=== PATIENT | female | born 1960 | race Caucasian/White ===

== ENCOUNTER 2022-03-07 10:20 | Inpatient (IN) ==
--- NOTE | 2022-03-07 10:35 | Emergency Department Note ---
HPI General Chief complaint: Rib Pain Stated complaint: Fall Time Seen by Provider: 03/07/22 10:35 Source: patient Mode of arrival: ambulatory Limitations: no limitations History of Present Illness HPI Narrative: Narrative: Patient is a 61-year-old female with no significant past medical history who presents to the emergency department due to pain after fall. Patient states that she fell on Friday and had significant pain initially, but this pain seem to have improved. She states that she has had worsening of pain since then, so decided to come to the emergency department. She endorses pain in both the fro nt of her chest and back of her chest bilaterally. She states that this started after she tripped, fell, and hit the anterior part of her chest and belly. She endorses worsening of this pain with deep breathing and with certain movements. She denies any other concerns at this time. Related Data Home Medications Medication Instructions Recorded Confirmed diphenhydramine 25 See Rx Instructions PO QHS PRN Rash 02/02/19 11/06/21 mg-acetaminophen 500 mg tablet (Tylenol PM Extra Strength) Previous Rx's Medication Instructions Recorded albuterol sulfate 90 mcg/actuation 2 inh inhalation QID PRN shortness 01/12/21 aerosol inhaler (ProAir HFA) of breath or wheezing #8.5 grams alendronate 70 mg tablet 70 mg PO QWEEK #28 tabs 03/27/21 amlodipine 10 mg tablet 10 mg PO QDAY #90 tabs 05/25/21 lisinopril 40 mg tablet See Rx Instructions .Route 05/31/21 .COMPLEX #30 tabs sertraline 50 mg tablet 50 mg PO QDAY #60 tabs 07/13/21 fluticasone fur. 200 mcg-umeclid 1 inh inhalation Q24H #60 ea 11/06/21 62.5 mcg-vilant 25 mcg inhalat.powder (Trelegy Ellipta) meloxicam 7.5 mg tablet 7.5 mg PO BIDWMEAL #60 tabs 01/01/22 atorvastatin 40 mg tablet See Rx Instructions .Route 01/30/22 .COMPLEX #30 tabs hydroxyzine HCl 25 mg tablet 25 mg PO TID PRN anxiety #30 tabs 03/04/22 Allergies Allergy/AdvReac Type Severity Reaction Status Date / Time Penicillins Allergy Severe Unknown Verified 11/06/21 09:41 Review of Systems ROS ROS Narrative: Narrative: Constitutional: Denies fever or weakness Eyes: Denies eye pain or vision change ENT ED: Denies throat pain, hearing loss or rhinorrhea Cardiovascular: Reports chest pain; Denies dyspnea on exertion, orthopnea or edema Respiratory: Reports shortness of breath; Denies cough Gastrointestinal: Denies abdominal pain, nausea, vomiting, diarrhea, constipation, hematochezia or melena Musculoskeletal: Denies back pain or myalgia Integumentary: Denies rash or lesions Neurological: Denies headache, weakness, numbness, confusion, abnormal gait or dizziness Endocrine: Denies fatigue or polyuria Hematological/Lymphatic: Denies easy bleeding or easy bruising PFSH Narrative Patient History Narrative: Narrative: Medical/Surgical/Family History All Active Problems (Updated 03/10/22 @ 02:29 by Stanley Martinez MD) Closed rib fracture (Acute) Stage 1 acute kidney injury (Acute) Atelectasis of left lung (Acute) Left rib fracture (Acute) Emphysema lung (Acute) Rib pain on left side (Acute) Alcoholic (Acute) PTSD (post-traumatic stress disorder) (Acute) Smoker (Acute) Carotid bruit (Acute) Anxiety (Acute) Accelerated essential hypertension (Acute) Thoracic back pain (Acute) Osteoarthritis (Chronic) Muscle cramps (Chronic) Depression (Chronic) Screening for colon cancer (Chronic) Hypertension (Chronic) Hyperlipidemia (Chronic) Heart murmur (Chronic) Asthma (Chronic) Arthritis (Chronic) Poor sleep (Chronic) Menopausal state (Chronic) Nondisp fx proximal phalanx lesser toe right foot w/delayed healing (Acute) Medical History Arthritis Asthma Depression Heart murmur Hyperlipidemia Hypertension Menopausal state Muscle cramps Osteoarthritis Poor sleep Screening for colon cancer Surgical History History of knee surgery (~1986) Family History Mother , age 63 Heart disease Family/Other Diabetes Siblings Social History Smoking Status: Current every day smoker Substance Use: does not use Exam Narrative Narrative: Narrative: General Limitations: no limitations General appearance: Present alert and in no apparent distress; Absent anxious, appears intoxicated or sleepy Head Head: Present atraumatic and normocephalic Eye Eye: Present EOMI; Absent scleral icterus or nystagmus ENT ENT: Present mucous membranes moist; Absent nasal congestion Neck Neck: Present full ROM; Absent tenderness Chest Chest: Present normal inspection, symmetric chest wall rise and tenderness Respiratory Respiratory: Present normal lung sounds bilaterally; Absent respiratory distress or accessory muscle use Cardiovascular Cardiovascular: Present regular rate, normal rhythm and normal heart sounds Adbominal Abdominal: Present soft and normal bowel sounds; Absent distention or tenderness Extremities Extremities: Present normal inspection and full ROM; Absent tenderness Back Back: Present normal inspection and full ROM; Absent tenderness Neurological Neurological: Present alert and oriented X3 Psychiatric Psychiatric: Present normal affect and normal mood Skin Skin: Present warm (WNL), dry and normal color Course Vital Signs Vital signs: Vital Signs Temperature 96.8 F L 03/07/22 10:23 Pulse Rate 115 H 03/07/22 10:23 Respiratory Rate 25 H 03/07/22 10:23 Blood Pressure 151/75 03/07/22 10:23 Pulse Oximetry (%) 97 03/07/22 10:23 Oxygen Delivery Method 03/07/22 10:23 Temperature 98.4 F 03/09/22 23:51 Pulse Rate 89 03/09/22 23:51 Respiratory Rate 16 03/09/22 23:51 Blood Pressure 129/83 03/09/22 23:51 Pulse Oximetry (%) 94 03/09/22 23:51 Oxygen Delivery Method 03/09/22 23:51 MDM MDM Narrative Medical decision making narrative: Narrative: Patient is a 61-year-old female with no significant past medical history who presents to the emergency department due to pain after fall. Given patient's rib tenderness and fall there is concern for rib fracture. Differential for patient's chest pain and shortness of breath also includes ACS and pneumonia. Patient CT scan demonstrates 3 consecutive rib fractures. For this reason I have called and spoken to Dr. Goode, but he recommended that since patient was a couple of days out from injury and without pneumothorax that I speak to Dr. Covington. I spoke to Dr. Covington who has agreed to see and evaluate patient for admission. Lab Data Result diagrams: 03/08/22 05:05 03/08/22 05:05 Labs: Lab Results 03/07/22 03/07/22 Range/Units 12:04 12:07 WBC 11.9 H (4.5-11.0) K/mcL RBC 4.72 (3.59-5.38) M/mcL Hgb 14.7 (11.2-15.7) g/dL Hct 43.8 (34.1-44.9) % POC Hct 48.0 (36-48) MCV 92.8 (80.0-100.0) fL MCH 31.1 (26.0-34.0) pg MCHC 33.6 (31.0-36.0) g/dL RDW 12.8 (11.5-14.5) % Plt Count 299 (140-440) K/mcL MPV 9.5 (8.8-12.5) fL Immature Gran % (Auto) 0.4 (0.0-0.5) % Neut % (Auto) 88.6 H (38.0-78.0) % Lymph % (Auto) 5.6 L (15.5-49.0) % [place] % (Auto) 4.7 (1.0-12.0) % Eos % (Auto) 0.2 (0.0-7.0) % Baso % (Auto) 0.5 (0.0-2.0) % Lymph # (Auto) 0.67 L (1.50-4.80) K/mcL [place] # (Auto) 0.56 (0.10-0.90) K/mcL Eos # (Auto) 0.02 (0.00-0.70) K/mcL Baso # (Auto) 0.06 (0.00-0.30) K/mcL Immature Gran # 0.05 (0.00-0.05) K/mcl Absolute Neutrophils 10.52 H (1.80-8.00) K/mcL POC Sodium 135 (133-145) POC Potassium 4.1 (3.3-5.1) POC Chloride 103 (96-108) POC Total CO2 22.0 (22-30) POC BUN 21 H (6-20) POC Creatinine 1.3 H (0.6-1.2) POC Glucose 122 H (70-105) POC WB Ioniz Calcium 1.17 (1.16-1.32) Discharge Plan Patient/Caregiver Discharge Instructions Pt seen by NUCLEAR ENGINEER/PA only: No Clinical Impression: Closed rib fracture Patient Disposition: Xfer As Inpt ([facility]) Discharge Date/Time: 03/07/22 19:45
[2022-03-07] MEDS ORDERED: 0.9 % SODIUM CHLORIDE 500 ML IV ONE (11:34)
[2022-03-07] MEDS ORDERED: KETOROLAC 30 MG/ML VIAL IV ONE (11:34)
[2022-03-07 12:13] LABS: POC Calcium, Ionized 1.17 (1.16-1.32); POC Creatinine 1.3 (0.6-1.2); POC Potassium 4.1 (3.3-5.1)
[2022-03-07 12:27] LABS: Basophils # (Auto) 0.06 K/mcL (0.00-0.30); Basophils % (Auto) 0.5 % (0.0-2.0); Eosinophils # (Auto) 0.02 K/mcL (0.00-0.70); Eosinophils % (Auto) 0.2 % (0.0-7.0); Hematocrit 43.8 % (34.1-44.9); Hemoglobin 14.7 g/dL (11.2-15.7); Lymphocytes # (Auto) 0.67 K/mcL (1.50-4.80); Lymphocytes % (Auto) 5.6 % (15.5-49.0); Mean Cell Volume 92.8 fL (80.0-100.0); Mean Corpuscular HGB Conc 33.6 g/dL (31.0-36.0); Mean Platelet Volume 9.5 fL (8.8-12.5); Monocytes # (Auto) 0.56 K/mcL (0.10-0.90); Monocytes % (Auto) 4.7 % (1.0-12.0); Neutrophils % (Auto) 88.6 % (38.0-78.0); Platelet Count 299 K/mcL (140-440); RBC 4.72 M/mcL (3.59-5.38); Red Cell Distribution Width 12.8 % (11.5-14.5); WBC 11.9 K/mcL (4.5-11.0)
--- NOTE | 2022-03-07 13:39 | Cat Scan Report ---
History: Fell with bilateral anterior chest wall injuries TECHNIQUE: The chest was imaged without contrast in axial plane at 2.5 mm intervals. Sagittal, coronal and axial MIPS images were obtained. The radiation exposure was limited using dose reduction technology. FINDINGS: There are acute, nondisplaced fractures anteriorly in the left third, fourth and fifth ribs. There is an old healed fracture with callus anterolaterally in the left sixth rib. The right-sided ribs are normal with no fracture. There is no pneumothorax or pleural effusion. No chest wall hematoma is present. Subtle centrilobular emphysema is present in both upper lobes. There are two benign pleural-based nodules posteriorly medially in the right upper apex. The larger measures 7 mm. There has been no growth since the prior CT done on 03/15/21. There are also chronic linear bands of scar tissue inferiorly medially in the lingula and medially in the right middle lobe. A new band of scar or discoid atelectasis has developed laterally in the inferior segment of lingula and the anterior basal segment left lower lobe. There is no consolidating infiltrate or suspicious lung mass. The heart is normal in size and contour. No enlarged lymph nodes are present. There is very little atherosclerotic disease in the chest. There is mild arthritis at multiple levels in the thoracic spine. There is no spinal fracture. The sternum and visualized portions of the clavicles and scapula are normal. IMPRESSION: Acute fractures anteriorly in the left third fourth and fifth ribs. New linear bands of scar or discoid atelectasis in the anterior basal segment of the left lower lobe and inferior segment of the lingula Stable pleural-based nodular scars posteriorly in the right upper thorax Dr. Martinez was called with the report Interpreted and Authenticated by: Miguel Angel Chan 03/07/22
[2022-03-07] MEDS ORDERED: HYDROmorphone 0.5 MG/0.5 ML SYRINGE IV ONE ×3 (13:51→19:27)
--- NOTE | 2022-03-07 16:31 | Internal Med History&Physical ---
HPI History of Present Illness Patient information: Note initiated : 03/07/22 at 4:29 pm Service Date, if different from initiated Date: [] Patient: Adeline Mathews 61 y/o F admitted on for Fall. Chief Complaint: [left ribs pain] Chief complaint: left ribs pain History of present illness: Ms. Mathews is a 61 year old F history of cigarette smoking, COPD, essential hypertensions, presenting with accidental fall with resultant left sided chest wall pain with associated shortness of breath. She had a mechanical fall last Friday when he tripped on the cord of the heater. She landed on her abdomen and her chest without any head injury. She did not lost her consciousness. Her pain gradually increased now graded at 10 out of 10 in severity, constant, sharp, radiating from her left upper abdominal quadrant to left lateral chest to left upper back. She has difficulty taking a deep breath and does associated shortness of breath. CT imaging showing acute fractures anteriorly in the left third fourth and fifth ribs with associated atelectasis in the anterior basal segment of the left lower lobe and inferior segment of the lingula. Labs also showing mild leukocytosis with WBC 11.9, as well as serum creatinine mildly raised to 1.3 with baseline 1.0. Admission request was called for pain management associated with rib fractures. Constitutional Constitutional: Absent chills, excessive sweating, fatigue, fever(s) or weakness EENT Eyes: Absent blurry vision, change in vision, loss of vision or other visual disturbances Ears: Absent decreased hearing or tinnitus Nose, mouth and throat: Absent abnormal hearing, dry mouth, headache(s), nasal congestion or sore throat Cardiovascular Cardiovascular: Absent chest pain, chest pain at rest, edema, irregular heart rhythm or palpatations Respiratory Respiratory: Present dyspnea; Absent cough or wheezing Gastrointestinal Gastrointestinal: Present as per HPI and abdominal pain; Absent constipation, diarrhea, nausea or vomiting Musculoskeletal Musculoskeletal: Present as per HPI and back pain; Absent deformity, limited range of motion, muscle cramps, muscle weakness or numbness Integumentary Integumentary: Absent lesions, rash or wounds Neurological Neurological: Absent focal weakness, headache(s) or numbness Psychiatric Psychiatric: Absent anxiety, depression or hallucinations PFSH PFSH All Active Problems (Updated 03/07/22 @ 16:37 by Anuj Covington MD) Stage 1 acute kidney injury (Acute) Atelectasis of left lung (Acute) Left rib fracture (Acute) Emphysema lung (Acute) Rib pain on left side (Acute) Alcoholic (Acute) PTSD (post-traumatic stress disorder) (Acute) Smoker (Acute) Carotid bruit (Acute) Anxiety (Acute) Accelerated essential hypertension (Acute) Thoracic back pain (Acute) Osteoarthritis (Chronic) Muscle cramps (Chronic) Depression (Chronic) Screening for colon cancer (Chronic) Hypertension (Chronic) Hyperlipidemia (Chronic) Heart murmur (Chronic) Asthma (Chronic) Arthritis (Chronic) Poor sleep (Chronic) Menopausal state (Chronic) Nondisp fx proximal phalanx lesser toe right foot w/delayed healing (Acute) Medical History Arthritis Asthma Depression Heart murmur Hyperlipidemia Hypertension Menopausal state Muscle cramps Osteoarthritis Poor sleep Screening for colon cancer Surgical History History of knee surgery (~1986) Family History Mother , age 63 Heart disease Family/Other Diabetes Siblings Social History (Updated 03/27/21 @ 17:15 by Felicia Rasmussen CMA) marital status: legally smoking status: Current every day smoker tobacco type: cigarettes per day: 1 p ack-years: 30 smoking status start date: 04/14/90 counseling given: patient declined substance use type: does not use MEDS/ALLERGIES Home Medications and Allergies Home Medications Medication Instructions Recorded Confirmed Type diphenhydramine 25 See Rx Instructions PO QHS PRN 02/02/19 11/06/21 History mg-acetaminophen 500 mg tablet (Tylenol PM Extra Strength) albuterol sulfate 90 mcg/actuation 2 inh inhalation QID PRN shortness 01/12/21 11/06/21 Rx aerosol inhaler (ProAir HFA) of breath or wheezing #8.5 grams alendronate 70 mg tablet 70 mg PO QWEEK #28 tabs 03/27/21 11/06/21 Rx amlodipine 10 mg tablet 10 mg PO QDAY #90 tabs 05/25/21 11/06/21 Rx lisinopril 40 mg tablet See Rx Instructions .Route 05/31/21 11/06/21 Rx .COMPLEX #30 tabs sertraline 50 mg tablet 50 mg PO QDAY #60 tabs 07/13/21 11/06/21 Rx fluticasone fur. 200 mcg-umeclid 1 inh inhalation Q24H #60 ea 11/06/21 11/06/21 Rx 62.5 mcg-vilant 25 mcg inhalat.powder (Trelegy Ellipta) meloxicam 7.5 mg tablet 7.5 mg PO BIDWMEAL #60 tabs 01/01/22 Rx atorvastatin 40 mg tablet See Rx Instructions .Route 01/30/22 Rx .COMPLEX #30 tabs hydroxyzine HCl 25 mg tablet 25 mg PO TID PRN anxiety #30 tabs 03/04/22 Rx Allergies Allergy/AdvReac Type Severity Reaction Status Date / Time Penicillins Allergy Severe Unknown Verified 11/06/21 09:41 EXAM Constitutional Vitals: Temp Pulse Resp BP Pulse Ox O2 Del Method 36.0 C L 97 H 25 H 138/80 97 03/07/22 10:23 03/07/22 15:40 03/07/22 10:23 03/07/22 12:31 03/07/22 15:40 03/07/22 10:23 General appearance: cooperative and no acute distress Head Head exam: Present atraumatic and normocephalic Eye Eye exam: Present EOMI and PERRL ENT ENT exam: Present mucous membranes moist, normal exam and normal external ear exam Neck Neck exam: Present normal inspection; Absent lymphadenopathy, tenderness or thyromegaly Respiratory Respiratory exam: Present decreased breath sounds and rhonchi; Absent accessory muscle use, respiratory distress or wheezes Cardiovascular Cardiovascular exam: Present normal rate and rhythm; Absent JVD GI/Abdominal GI/Abdominal exam: Present normal bowel sounds and soft; Absent organomegaly or tenderness Extremities Exam Extremities exam: Present full ROM, normal capillary refill and normal inspection; Absent tenderness Back Exam Back exam: Present CVA tenderness (L) and tenderness Neurological Exam Neurological exam: Present alert, CN II-XII intact and oriented X3; Absent motor sensory deficit Psychiatric Psychiatric exam: Present normal affect and normal mood; Absent anxious or depressed Skin Skin exam: Present dry and intact DATA Data Completed and Pending Labs: Labs from last 24 hours 03/07/22 03/07/22 12:07 12:04 WBC 11.9 H RBC 4.72 Hgb 14.7 Hct 43.8 POC Hct 48.0 MCV 92.8 MCH 31.1 MCHC 33.6 RDW 12.8 Plt Count 299 MPV 9.5 Immature Gran % (Auto) 0.4 Neut % (Auto) 88.6 H Lymph % (Auto) 5.6 L [place] % (Auto) 4.7 Eos % (Auto) 0.2 Baso % (Auto) 0.5 Lymph # (Auto) 0.67 L [place] # (Auto) 0.56 Eos # (Auto) 0.02 Baso # (Auto) 0.06 Immature Gran # 0.05 Absolute Neutrophils 10.52 H POC Sodium 135 POC Potassium 4.1 POC Chloride 103 POC Total CO2 22.0 POC BUN 21 H POC Creatinine 1.3 H POC Glucose 122 H POC WB Ioniz Calcium 1.17 A/P Assessment and plan (1) Left rib fracture: Status: Acute (2) Atelectasis of left lung: Status: Acute (3) Smoker: Status: Acute (4) Emphysema lung: Status: Acute (5) Stage 1 acute kidney injury: Status: Acute Narrative A/P Narrative: Assessment and Plans: 1. Acute left 3rd, 4th, and 5th rib fracture with associated left left lower lobe/lingula atelectasis: Inpatient med surg Tylenol PRN mild pain Oxycodone PRN moderate pain Dilaudid IV PRN severe pain Toradol PRN MSK pain Ativan PO PRN anxiety Incentive spirometry Physcial therapy 2. COPD/emphysema: DuoNEB NEB PRN wheezing Incentive spirometry 3. Cigarette smoker: Nicotine replacement therapy 4. Stage 1 acute kidney injury: Avoid nephrotoxic agents NS@100cc/hr CMP in the morning to trend kidney functions GI ppx: not currently indicated DVT ppx: Lovenox Code status: Full Prognosis: guarded Disposition: inpatient med surg; PT Time Spent With Patient Time: Total time spent is greater than 50% in coordination of care (as documented) at patient's floor/unit and/or counseling patient: Total time spent with greater than 50% in coordination of care (as documented) at patient's floor/unit and/or counseling patient:: 50 - 70 minutes
[2022-03-07] MEDS ORDERED: traZODone HCL 50 MG TABLET PO PRN (19:59)
[2022-03-07] MEDS: SENNOSIDES 1 TABLET PO SCH (20:51)
[2022-03-07] MEDS: DOCUSATE SODIUM 100 MG CAPSULE PO SCH (20:51)
[2022-03-07] MEDS: 0.9 % SODIUM CHLORIDE 1,000 ML IV SCH (20:51)
[2022-03-07] MEDS: NICOTINE 21 MG PATCH TOPICAL SCH (20:51)
[2022-03-07] MEDS: 0.9 % SODIUM CHLORIDE 10 ML SYRINGE IV SCH (21:14)
[2022-03-07] MEDS: HYDROmorphone 0.5 MG/0.5 ML SYRINGE IV PRN (21:31)
[2022-03-07] MEDS: ONDANSETRON 4 MG/2 ML VIAL IV PRN (21:37)
[2022-03-08] MEDS: oxyCODONE HCL 5 MG TABLET PO PRN ×3 (01:02→20:06)
[2022-03-08] MEDS: IPRATROPIUM/ALBUTEROL 3 ML AMPUL.NEB NEB PRN ×3 (03:43→12:34)
[2022-03-08] MEDS: 0.9 % SODIUM CHLORIDE 10 ML SYRINGE IV SCH ×3 (05:05→20:14)
[2022-03-08] MEDS: 0.9 % SODIUM CHLORIDE 1,000 ML IV SCH ×4 (05:05→20:07)
[2022-03-08] MEDS: KETOROLAC 15 MG/ML VIAL IV PRN ×2 (05:41→12:31)
[2022-03-08 06:49] LABS: Basophils # (Auto) 0.04 K/mcL (0.00-0.30); Basophils % (Auto) 0.5 % (0.0-2.0); Eosinophils # (Auto) 0.04 K/mcL (0.00-0.70); Eosinophils % (Auto) 0.5 % (0.0-7.0); Hematocrit 40.7 % (34.1-44.9); Hemoglobin 13.5 g/dL (11.2-15.7); Lymphocytes # (Auto) 0.87 K/mcL (1.50-4.80); Lymphocytes % (Auto) 11.7 % (15.5-49.0); Mean Cell Volume 95.8 fL (80.0-100.0); Mean Corpuscular HGB Conc 33.2 g/dL (31.0-36.0); Mean Platelet Volume 9.7 fL (8.8-12.5); Monocytes # (Auto) 0.49 K/mcL (0.10-0.90); Monocytes % (Auto) 6.6 % (1.0-12.0); Neutrophils % (Auto) 80.3 % (38.0-78.0); Platelet Count 259 K/mcL (140-440); RBC 4.25 M/mcL (3.59-5.38); Red Cell Distribution Width 13.2 % (11.5-14.5); WBC 7.5 K/mcL (4.5-11.0)
[2022-03-08 06:50] LABS: ALT/SGPT 11 U/L (<40); AST/SGOT 16 U/L (<32); Albumin/Globulin Ratio 1.6 (1.0-2.3); Alkaline Phosphatase 109 U/L (39-117); Bilirubin,Total 0.8 mg/dL (0.1-1.0); Blood Urea Nitrogen 19 mg/dL (8-23); Carbon Dioxide 25 mmol/L (22-30); Chloride 101 mmol/L (96-108); Globulin 2.5 gm/dL (2.2-3.7); Glomerular Filtration Rate 44; Glucose 91 mg/dL (70-105)
[2022-03-08] MEDS ORDERED: ENOXAPARIN 30 MG/0.3 ML SYRINGE SQ SCH (09:00)
[2022-03-08] MEDS ORDERED: ALBUTEROL SULFATE 60 PUFF INHALER INH PRN (09:17)
[2022-03-08] MEDS: ENOXAPARIN 40 MG/0.4 ML SYRINGE SQ SCH (09:48)
[2022-03-08] MEDS: DOCUSATE SODIUM 100 MG CAPSULE PO SCH ×2 (09:48→20:06)
[2022-03-08] MEDS: LISINOPRIL 20 MG TABLET PO SCH (09:48)
[2022-03-08] MEDS: NICOTINE 21 MG PATCH TOPICAL SCH (11:06)
[2022-03-08] MEDS: LORazepam 0.5 MG TABLET PO PRN (11:11)
--- NOTE | 2022-03-08 13:00 | Internal Med Progress Note ---
SUBJECTIVE Subjective Patient information: Note initiated : 03/08/22 at 12:57 pm Service Date, if different from initiated Date: [] Patient: Adeline Mathews 61 y/o F admitted on 03/07/22 for Fall-Left Rib Fractures. Chief Complaint: [] Interval history: Ms. Mathews is a 61 year old F history of cigarette smoking, COPD, essential hypertensions, presenting with accidental fall with resultant left sided chest wall pain with associated shortness of breath. She had a mechanical fall last Friday when he tripped on the cord of the heater. She landed on her abdomen and her chest without any head injury. She did not lost her consciousness. Her pa in gradually increased now graded at 10 out of 10 in severity, constant, sharp, radiating from her left upper abdominal quadrant to left lateral chest to left upper back. She has difficulty taking a deep breath and does associated shortness of breath. CT imaging showing acute fractures anteriorly in the left third fourth and fifth ribs with associated atelectasis in the anterior basal segment of the left lower lobe and inferior segment of the lingula. Labs also showing mild leukocytosis with WBC 11.9, as well as serum creatinine mildly raised to 1.3 with baseline 1.0. Admission request was called for pain management associated with rib fractures. 03/08: Patient is currently complaining of 2 out of 10, mild, sharp left sided chest wall pain. She is coming of improving degree of shortness of breath and can take a deep breath compared to yesterday. Laboratory rise, WBC down trended from 11.9-7.5. Serum creatinine level status same at 1.3. Continue to provide narcotics as needed for pain control. Continue to encourage patients to use incentive spirometry while awake. Continue IV fluid replacement while trending kidney functions on a daily basis. Continue physical therapy evaluation and treatment. Constitutional Vitals: Vital Signs Temp Pulse Resp BP Pulse Ox O2 Del Method 36.7 C 111 H 16 136/67 93 03/08/22 12:00 03/08/22 12:37 03/08/22 12:37 03/08/22 12:00 03/08/22 12:37 03/08/22 12:37 Period Temp Pulse Resp BP Sys/Roberts Pulse Ox O2 Del Method O2 Flow Rate Last 24 Hr 36.7 C-36.9 C 66-111 16-20 117-158/67-103 91-99 Room Air-Room Air Intake and Output 03/08/22 03/08/22 03/08/22 03:59 11:59 19:59 Intake Total 400 1480 Output Total 400 50 Balance 0 1430 Weight 69.57 kg Intake & Output: Intake & Output 03/08/22 03/08/22 03/08/22 03:59 11:59 19:59 Intake Total 400 1480 Output Total 400 50 Balance 0 1430 Weight 69.57 kg Intake: IV 1000 Sodium Chloride 0.9% 1,000 ml @ 1000 100 mls/hr IV .Q10H [facility] Rx#: [id number] Oral 400 480 Output: Void Amount 400 50 Other: Meal Breakfast Percent of Meal Consumed 50% Feeding Ability Independent Urine Appearance Clear Clear Urine Color Yellow Yellow Head Head exam: Present atraumatic and normal inspection Eye Eye exam: Present normal appearance ENT ENT exam: Present mucous membranes moist, normal exam and normal external ear exam Neck Neck exam: Present normal inspection Respiratory Respiratory exam: Present decreased breath sounds and wheezes Additional comments: Left lateral chest wall tenderness to palpation Cardiovascular Cardiovascular exam: Present normal rate and rhythm GI/Abdominal GI/Abdominal exam: Present normal bowel sounds Back Exam Back exam: Present normal inspection Neurological Exam Neurological exam: Present alert and oriented X3 Skin Skin exam: Present intact and warm OBJ DATA Labs CBC & Chem 7: 03/08/22 05:05 03/08/22 05:05 Labs: Abnormal Lab Results 03/08/22 03/08/22 03/07/22 05:05 05:05 12:07 WBC Neut % (Auto) 80.3 H Lymph % (Auto) 11.7 L Lymph # (Auto) 0.87 L Absolute Neutrophils POC BUN 21 H Creatinine 1.3 H POC Creatinine 1.3 H POC Glucose 122 H 03/07/22 12:04 WBC 11.9 H Neut % (Auto) 88.6 H Lymph % (Auto) 5.6 L Lymph # (Auto) 0.67 L Absolute Neutrophils 10.52 H POC BUN Creatinine POC Creatinine POC Glucose Meds: Medications Acetaminophen (Acetaminophen 325 Mg Tablet) 650 mg PO Q6HP PRN; Protocol PRN Reason: Per Pain Protocol/Fever > 101 Albuterol Sulfate (Albuterol Sulfate 200 Puff Inhaler) 2 puff INH QIDP PRN PRN Reason: shortness of breath or wheezing Albuterol/Ipratropium (Ipratropium/Albuterol 3 Ml Ampul.Neb) 3 ml NEB Q4HRT PRN PRN Reason: Wheezing Last Admin: 03/08/22 12:34 Dose: 3 ml Alendronate Sodium (Alendronate Sodium 70 Mg Tablet) 70 mg PO Fr@0730 [facility] Amlodipine Besylate (Amlodipine 10 Mg Tablet) 10 mg PO QDAY [facility] Atorvastatin Calcium (Atorvastatin 40 Mg Tablet) 40 mg PO HS [facility] Docusate Sodium (Docusate Sodium 100 Mg Capsule) 100 mg PO BID [facility] Last Admin: 03/08/22 09:48 Dose: 100 mg Enoxaparin Sodium (Enoxaparin 40 Mg/0.4 Ml Syringe) 40 mg SQ DAILY [facility] Last Admin: 03/08/22 09:48 Dose: 40 mg Hydromorphone HCl (Hydromorphone 0.5 Mg/0.5 Ml Syringe) 0.5 mg IV Q2HP PRN; Protocol PRN Reason: Per Pain Protocol Last Admin: 03/07/22 21:31 Dose: 0.5 mg Hydroxyzine HCl (Hydroxyzine 25 Mg Tablet) 25 mg PO TIDP PRN PRN Reason: anxiety Sodium Chloride (Sodium Chloride 0.9%) 1,000 mls @ 100 mls/hr IV .Q10H [facility] Last Admin: 03/08/22 09:47 Dose: 100 mls/hr Ketorolac Tromethamine (Ketorolac 15 Mg/Ml Vial) 15 mg IV Q6HP PRN; Protocol PRN Reason: Per Pain Protocol Stop: 03/09/22 20:01 Last Admin: 03/08/22 12:31 Dose: 15 mg Lisinopril (Lisinopril 20 Mg Tablet) 40 mg PO DAILY [facility] Last Admin: 03/08/22 09:48 Dose: 40 mg Lorazepam (Lorazepam 0.5 Mg Tablet) 0.5 mg PO Q4HP PRN PRN Reason: ANXIETY/SEDATION Last Admin: 03/08/22 11:11 Dose: 0.5 mg Nicotine (Nicotine 21 Mg Patch) 21 mg TOPICAL DAILY@1000 [facility] Last Admin: 03/08/22 11:06 Dose: 21 mg Ondansetron HCl (Ondansetron 4 Mg/2 Ml Vial) 4 mg IV Q6HP PRN PRN Reason: Nausea And Vomiting Last Admin: 03/07/22 21:37 Dose: 4 mg Oxycodone HCl (Oxycodone Hcl 5 Mg Tablet) 10 mg PO Q4HP PRN; Protocol PRN Reason: Per Pain Protocol Last Admin: 03/08/22 09:53 Dose: 10 mg Senna (Sennosides 1 Tablet) 2 tab PO HS [facility] Last Admin: 03/07/22 20:51 Dose: 2 tab Sertraline HCl (Sertraline 50 Mg Tablet) 50 mg PO QDAY [facility] Sodium Chloride (0.9 % Sodium Chloride 10 Ml Syringe) 10 ml IV Q8 [facility] Last Admin: 03/08/22 05:05 Dose: Not Given Trazodone HCl (Trazodone Hcl 50 Mg Tablet) 25 mg PO HSP PRN PRN Reason: Insomnia A/P Assessment and plan (1) Left rib fracture: Status: Acute (2) Atelectasis of left lung: Status: Acute (3) Smoker: Status: Acute (4) Emphysema lung: Status: Acute (5) Stage 1 acute kidney injury: Status: Acute Narrative A/P Narrative: Assessment and Plans: 1. Acute left 3rd, 4th, and 5th rib fracture with associated left left lower lobe/lingula atelectasis: Inpatient med surg Tylenol PRN mild pain Oxycodone PRN moderate pain Dilaudid IV PRN severe pain Toradol PRN MSK pain Ativan PO PRN anxiety Incentive spirometry Physical therapy evaluation and treatment 2. COPD/emphysema: DuoNEB NEB PRN wheezing Incentive spirometry 3. Cigarette smoker: Nicotine replacement therapy 4. Stage 1 acute kidney injury: Avoid nephrotoxic agents NS@100cc/hr CMP in the morning to trend kidney functions GI ppx: not currently indicated DVT ppx: Lovenox Code status: Full Prognosis: Stable Disposition: inpatient med surg; PT Time Spent With Patient Time: Total time spent is greater than 50% in coordination of care (as documented) at patient's floor/unit and/or counseling patient: Total time spent with greater than 50% in coordination of care (as documented) at patient's floor/unit and/or counseling patient:: 25 - 35 minutes QUALITY Stroke Symptom Onset Unknown: No VTE Deep Vein Thrombosis/Pulmonary Embolism Present on Admission: No
[2022-03-08] MEDS: ONDANSETRON 4 MG/2 ML VIAL IV PRN (15:13)
[2022-03-08] MEDS: HYDROmorphone 0.5 MG/0.5 ML SYRINGE IV PRN (15:13)
[2022-03-08] MEDS: SENNOSIDES 1 TABLET PO SCH (20:05)
[2022-03-08] MEDS: ATORVASTATIN 40 MG TABLET PO SCH (20:06)
[2022-03-08] MEDS: hydrOXYzine 25 MG TABLET PO PRN (22:53)
[2022-03-09] MEDS: 0.9 % SODIUM CHLORIDE 1,000 ML IV SCH ×3 (01:49→15:45)
[2022-03-09] MEDS: HYDROmorphone 0.5 MG/0.5 ML SYRINGE IV PRN ×4 (03:18→18:48)
[2022-03-09] MEDS: ACETAMINOPHEN 325 MG TABLET PO PRN (03:19)
[2022-03-09] MEDS: ONDANSETRON 4 MG/2 ML VIAL IV PRN ×2 (03:19→11:37)
[2022-03-09] MEDS: 0.9 % SODIUM CHLORIDE 10 ML SYRINGE IV SCH ×3 (04:11→21:23)
[2022-03-09] MEDS: amLODIPine 10 MG TABLET PO SCH (08:10)
[2022-03-09] MEDS: LISINOPRIL 20 MG TABLET PO SCH (08:10)
[2022-03-09] MEDS: SERTRALINE 50 MG TABLET PO SCH (08:10)
[2022-03-09] MEDS: ENOXAPARIN 40 MG/0.4 ML SYRINGE SQ SCH (08:10)
[2022-03-09] MEDS: DOCUSATE SODIUM 100 MG CAPSULE PO SCH ×2 (08:56→21:07)
[2022-03-09] MEDS: oxyCODONE HCL 5 MG TABLET PO PRN ×2 (10:02→21:06)
[2022-03-09] MEDS: NICOTINE 21 MG PATCH TOPICAL SCH (10:03)
[2022-03-09] MEDS: KETOROLAC 15 MG/ML VIAL IV PRN ×2 (11:37→19:01)
--- NOTE | 2022-03-09 15:14 | Internal Med Progress Note ---
SUBJECTIVE Subjective Patient information: Note initiated : 03/09/22 at 3:11 pm Service Date, if different from initiated Date: [] Patient: Adeline Mathews a 61 y/o F admitted on 03/07/22 for Fall-Left Rib Fractures. Chief Complaint: [] Interval history: Ms. Mathews is a 61 year old F history of cigarette smoking, COPD, essential hypertensions, presenting with accidental fall with resultant left sided chest wall pain with associated shortness of breath. She had a mechanical fall last Friday when he tripped on the cord of the heater. She landed on her abdomen and her chest without any head injury. She did not lost her consciousness. Her pain gradually increased now graded at 10 out of 10 in severity, constant, sharp, radiating from her left upper abdominal quadrant to left lateral chest to left upper back. She has difficulty taking a deep breath and does associated shortness of breath. CT imaging showing acute fractures anteriorly in the left third fourth and fifth ribs with associated atelectasis in the anterior basal segment of the left lower lobe and inferior segment of the lingula. Labs also showing mild leukocytosis with WBC 11.9, as well as serum creatinine mildly raised to 1.3 with baseline 1.0. Admission request was called for pain management associated with rib fractures. 03/08: Patient is currently complaining of 2 out of 10, mild, sharp left sided chest wall pain. She is coming of improving degree of shortness of breath and can take a deep breath compared to yesterday. Laboratory rise, WBC down trended f rom 11.9-7.5. Serum creatinine level status same at 1.3. Continue to provide narcotics as needed for pain control. Continue to encourage patients to use incentive spirometry while awake. Continue IV fluid replacement while trending kidney functions on a daily basis. Continue physical therapy evaluation and treatment. 03/09: Still c/o severe, 8/10 left sided chest wall pain. c/o mild shortness of breath due to chest wall pain. Poor appetite. Unable to participate with physical therapy due to pain. Continue to provide narcotics as needed for pain control. Continue to encourage patients to use incentive spirometry while awake. Continue IV fluid replacement while trending kidney functions on a daily basis. Continue physical therapy evaluation and treatment. Constitutional Vitals: Vital Signs Temp Pulse Resp BP Pulse Ox O2 Del Method 36.4 C 87 18 164/99 95 03/09/22 12:00 03/09/22 12:00 03/09/22 12:00 03/09/22 12:00 03/09/22 12:00 03/09/22 12:00 Period Temp Pulse Resp BP Sys/Roberts Pulse Ox O2 Del Method O2 Flow Rate Last 24 Hr 36.4 C-37.3 C 84-105 14-20 142-164/70-99 91-95 Room Air-Room Air Intake and Output 03/09/22 03/09/22 03/09/22 03:59 11:59 19:59 Intake Total 480 968 Output Total 600 Balance -120 968 Weight 71.894 kg Patient Weight 03/10/22 03:59 Weight 71.894 kg Intake & Output: Intake & Output 03/09/22 03/09/22 03/09/22 03:59 11:59 19:59 Intake Total 480 968 Output Total 600 Balance -120 968 Weight 71.894 kg Intake: IV 968 Sodium Chloride 0.9% 1,000 ml @ 968 100 mls/hr IV .Q10H [facility] Rx#: [id number] Oral 480 Output: Void Amount 600 Other: Urine Appearance Clear Clear Urine Color Yellow Yellow Stool Size Large Large Stool Color Brown Brown Yellow Stool Consistency Liquid Loose # Voids 1 1 # Bowel Movements 1 1 Head Head exam: Present atraumatic and normal inspection Eye Eye exam: Present normal appearance ENT ENT exam: Present mucous membranes moist, normal exam and normal external ear exam Neck Neck exam: Present normal inspection Respiratory Respiratory exam: Present chest wall tenderness and wheezes Cardiovascular Cardiovascular exam: Present normal rate and rhythm GI/Abdominal GI/Abdominal exam: Present normal bowel sounds Back Exam Back exam: Present normal inspection Neurological Exam Neurological exam: Present alert and oriented X3 Skin Skin exam: Present intact and warm OBJ DATA Labs CBC & Chem 7: 03/08/22 05:05 03/08/22 05:05 Labs: Abnormal Lab Results 03/08/22 03/08/22 03/07/22 05:05 05:05 12:07 WBC Neut % (Auto) 80.3 H Lymph % (Auto) 11.7 L Lymph # (Auto) 0.87 L Absolute Neutrophils POC BUN 21 H Creatinine 1.3 H POC Creatinine 1.3 H POC Glucose 122 H 03/07/22 12:04 WBC 11.9 H Neut % (Auto) 88.6 H Lymph % (Auto) 5.6 L Lymph # (Auto) 0.67 L Absolute Neutrophils 10.52 H POC BUN Creatinine POC Creatinine POC Glucose Meds: Medications Acetaminophen (Acetaminophen 325 Mg Tablet) 650 mg PO Q6HP PRN; Protocol PRN Reason: Per Pain Protocol/Fever > 101 Last Admin: 03/09/22 03:19 Dose: 650 mg Albuterol Sulfate (Albuterol Sulfate 200 Puff Inhaler) 2 puff INH QIDP PRN PRN Reason: shortness of breath or wheezing Albuterol/Ipratropium (Ipratropium/Albuterol 3 Ml Ampul.Neb) 3 ml NEB Q4HRT PRN PRN Reason: Wheezing Last Admin: 03/08/22 12:34 Dose: 3 ml Alendronate Sodium (Alendronate Sodium 70 Mg Tablet) 70 mg PO Fr@0730 [facility] Amlodipine Besylate (Amlodipine 10 Mg Tablet) 10 mg PO QDAY [facility] Last Admin: 03/09/22 08:10 Dose: 10 mg Atorvastatin Calcium (Atorvastatin 40 Mg Tablet) 40 mg PO HS [facility] Last Admin: 03/08/22 20:06 Dose: 40 mg Docusate Sodium (Docusate Sodium 100 Mg Capsule) 100 mg PO BID [facility] Last Admin: 03/09/22 08:56 Dose: Not Given Enoxaparin Sodium (Enoxaparin 40 Mg/0.4 Ml Syringe) 40 mg SQ DAILY [facility] Last Admin: 03/09/22 08:10 Dose: 40 mg Hydromorphone HCl (Hydromorphone 0.5 Mg/0.5 Ml Syringe) 0.5 mg IV Q2HP PRN; Protocol PRN Reason: Per Pain Protocol Last Admin: 03/09/22 08:11 Dose: 0.5 mg Hydroxyzine HCl (Hydroxyzine 25 Mg Tablet) 25 mg PO TIDP PRN PRN Reason: anxiety Last Admin: 03/08/22 22:53 Dose: 25 mg Sodium Chloride (Sodium Chloride 0.9%) 1,000 mls @ 100 mls/hr IV .Q10H [facility] Last Admin: 03/09/22 05:48 Dose: 100 mls/hr Ketorolac Tromethamine (Ketorolac 15 Mg/Ml Vial) 15 mg IV Q6HP PRN; Protocol PRN Reason: Per Pain Protocol Stop: 03/09/22 20:01 Last Admin: 03/09/22 11:37 Dose: 15 mg Lisinopril (Lisinopril 20 Mg Tablet) 40 mg PO DAILY [facility] Last Admin: 03/09/22 08:10 Dose: 40 mg Lorazepam (Lorazepam 0.5 Mg Tablet) 0.5 mg PO Q4HP PRN PRN Reason: ANXIETY/SEDATION Last Admin: 03/08/22 11:11 Dose: 0.5 mg Nicotine (Nicotine 21 Mg Patch) 21 mg TOPICAL DAILY@1000 [facility] Last Admin: 03/09/22 10:03 Dose: 21 mg Ondansetron HCl (Ondansetron 4 Mg/2 Ml Vial) 4 mg IV Q6HP PRN PRN Reason: Nausea And Vomiting Last Admin: 03/09/22 11:37 Dose: 4 mg Oxycodone HCl (Oxycodone Hcl 5 Mg Tablet) 10 mg PO Q4HP PRN; Protocol PRN Reason: Per Pain Protocol Last Admin: 03/09/22 10:02 Dose: 10 mg Senna (Sennosides 1 Tablet) 2 tab PO HS [facility] Last Admin: 03/08/22 20:05 Dose: 2 tab Sertraline HCl (Sertraline 50 Mg Tablet) 50 mg PO QDAY [facility] Last Admin: 03/09/22 08:10 Dose: 50 mg Sodium Chloride (0.9 % Sodium Chloride 10 Ml Syringe) 10 ml IV Q8 [facility] Last Admin: 03/09/22 14:26 Dose: Not Given Trazodone HCl (Trazodone Hcl 50 Mg Tablet) 25 mg PO HSP PRN PRN Reason: Insomnia A/P Assessment and plan (1) Left rib fracture: Status: Acute (2) Atelectasis of left lung: Status: Acute (3) Smoker: Status: Acute (4) Emphysema lung: Status: Acute (5) Stage 1 acute kidney injury: Status: Acute Narrative A/P Narrative: Assessment and Plans: 1. Acute left 3rd, 4th, and 5th rib fracture with associated left left lower lobe/lingula atelectasis: Inpatient med surg Tylenol PRN mild pain Oxycodone PRN moderate pain Dilaudid IV PRN severe pain Toradol PRN MSK pain Ativan PO PRN anxiety Incentive spirometry Physical therapy evaluation and treatment 2. COPD/emphysema: DuoNEB NEB PRN wheezing Incentive spirometry 3. Cigarette smoker: Nicotine replacement therapy 4. Stage 1 acute kidney injury: Avoid nephrotoxic agents NS@100cc/hr CMP in the morning to trend kidney functions GI ppx: not currently indicated DVT ppx: Lovenox Code status: Full Prognosis: Stable Disposition: inpatient med surg; PT, tentatively looking at Friday discharge Time Spent With Patient Time: Total time spent is greater than 50% in coordination of care (as documented) at patient's floor/unit and/or counseling patient: Total time spent with greater than 50% in coordination of care (as documented) at patient's floor/unit and/or counseling patient:: 25 - 35 minutes QUALITY Stroke Symptom Onset Unknown: No VTE Deep Vein Thrombosis/Pulmonary Embolism Present on Admission: No
[2022-03-09] MEDS: hydrOXYzine 25 MG TABLET PO PRN (17:49)
[2022-03-09] MEDS: IPRATROPIUM/ALBUTEROL 3 ML AMPUL.NEB NEB PRN (17:52)
[2022-03-09] MEDS: ATORVASTATIN 40 MG TABLET PO SCH (21:07)
[2022-03-09] MEDS: SENNOSIDES 1 TABLET PO SCH (21:08)
[2022-03-09] MEDS: LORazepam 0.5 MG TABLET PO PRN (22:32)
[2022-03-10] MEDS: HYDROmorphone 0.5 MG/0.5 ML SYRINGE IV PRN ×6 (00:36→19:17)
[2022-03-10] MEDS: 0.9 % SODIUM CHLORIDE 1,000 ML IV SCH ×2 (01:42→12:29)
[2022-03-10] MEDS: hydrOXYzine 25 MG TABLET PO PRN (03:37)
[2022-03-10 07:10] LABS: ALT/SGPT 12 U/L (<40); AST/SGOT 18 U/L (<32); Albumin 3.1 gm/dL (3.2-5.2); Albumin/Globulin Ratio 1.5 (1.0-2.3); Alkaline Phosphatase 75 U/L (39-117); Bilirubin,Total 0.3 mg/dL (0.1-1.0); Blood Urea Nitrogen 17 mg/dL (8-23); Calcium 8.1 mg/dL (8.6-10.4); Carbon Dioxide 22 mmol/L (22-30); Chloride 103 mmol/L (96-108); Globulin 2.1 gm/dL (2.2-3.7); Glomerular Filtration Rate 54; Glucose 94 mg/dL (70-105)
[2022-03-10] MEDS: 0.9 % SODIUM CHLORIDE 10 ML SYRINGE IV SCH ×3 (08:08→20:45)
[2022-03-10] MEDS: ENOXAPARIN 40 MG/0.4 ML SYRINGE SQ SCH (08:54)
[2022-03-10] MEDS: LISINOPRIL 20 MG TABLET PO SCH (08:54)
[2022-03-10] MEDS: NICOTINE 21 MG PATCH TOPICAL SCH (08:54)
[2022-03-10] MEDS: oxyCODONE HCL 5 MG TABLET PO PRN ×3 (08:54→20:40)
[2022-03-10] MEDS: amLODIPine 10 MG TABLET PO SCH (08:54)
[2022-03-10] MEDS: LORazepam 0.5 MG TABLET PO PRN ×2 (08:54→16:56)
[2022-03-10] MEDS: SERTRALINE 50 MG TABLET PO SCH (08:55)
[2022-03-10] MEDS: DOCUSATE SODIUM 100 MG CAPSULE PO SCH ×2 (09:05→20:42)
[2022-03-10] MEDS: IPRATROPIUM/ALBUTEROL 3 ML AMPUL.NEB NEB PRN ×2 (11:22→15:31)
[2022-03-10] MEDS: ACETAMINOPHEN 325 MG TABLET PO PRN (12:16)
--- NOTE | 2022-03-10 12:18 | Internal Med Progress Note ---
SUBJECTIVE Subjective Patient information: Note initiated : 03/10/22 at 12:15 pm Service Date, if different from initiated Date: [] Patient: Adeline Mathews a 61 y/o F admitted on 03/07/22 for Fall-Left Rib Fractures. Chief Complaint: [] Interval history: Ms. Mathews is a 61 year old F history of cigarette smoking, COPD, essential hypertensions, presenting with accidental fall with resultant left sided chest wall pain with associated shortness of breath. She had a mechanical fall last Friday when he tripped on the cord of the heater. She landed on her abdomen and her chest without any head injury. She did not lost her consciousness. Her pa in gradually increased now graded at 10 out of 10 in severity, constant, sharp, radiating from her left upper abdominal quadrant to left lateral chest to left upper back. She has difficulty taking a deep breath and does associated shortness of breath. CT imaging showing acute fractures anteriorly in the left third fourth and fifth ribs with associated atelectasis in the anterior basal segment of the left lower lobe and inferior segment of the lingula. Labs also showing mild leukocytosis with WBC 11.9, as well as serum creatinine mildly raised to 1.3 with baseline 1.0. Admission request was called for pain management associated with rib fractures. 03/08: Patient is currently complaining of 2 out of 10, mild, sharp left sided chest wall pain. She is coming of improving degree of shortness of breath and can take a deep breath compared to yesterday. Laboratory rise, WBC down trended from 11.9-7.5. Serum creatinine level status same at 1.3. Continue to provide narcotics as needed for pain control. Continue to encourage patients to use incentive spirometry while awake. Continue IV fluid replacement while trending kidney functions on a daily basis. Continue physical therapy evaluation and treatment. 03/09: Still c/o severe, 8/10 left sided chest wall pain. c/o mild shortness of breath due to chest wall pain. Poor appetite. Unable to participate with physical therapy due to pain. Continue to provide narcotics as needed for pain control. Continue to encourage patients to use incentive spirometry while awake. Continue IV fluid replacement while trending kidney functions on a daily basis. Continue physical therapy evaluation and treatment. 03/10: Patient is on 3L/min oxygen at the moment. Serum Cr level 1.3-->1.3-->1.1. Still c/o severe, 8/10 left sided chest wall pain. c/o mild shortness of breath due to chest wall pain. Continue to provide narcotics as needed for pain control. Continue to encourage patients to use incentive spirometry while awake. Saline lock. Continue physical therapy evaluation and treatment. Tentative discharge date: Friday03/11/22. Constitutional Vitals: Vital Signs Temp Pulse Resp BP Pulse Ox O2 Del Method O2 Flow Rate 37.0 C 86 36 H 149/90 91 3 03/10/22 11:25 03/10/22 11:53 03/10/22 11:53 03/10/22 11:25 03/10/22 11:53 03/10/22 11:53 03/10/22 11:53 Period Temp Pulse Resp BP Sys/Roberts Pulse Ox O2 Del Method O2 Flow Rate Last 24 Hr 36.8 C-37.4 C 86-108 14-36 127-162/83-91 85-96 Nasal Cannula- Room Air 3-3 Intake and Output 03/10/22 03/10/22 03/10/22 03:59 11:59 19:59 Intake Total 1595 Output Total 625 150 Balance 970 -150 Intake & Output: Intake & Output 03/10/22 03/10/22 03/10/22 03:59 11:59 19:59 Intake Total 1595 Output Total 625 150 Balance 970 -150 Intake: IV 995 Sodium Chloride 0.9% 1,000 ml @ 995 100 mls/hr IV .Q10H [facility] Rx#: [id number] Oral 600 Output: Void Amount 625 150 Other: Meal Dinner Percent of Meal Consumed 50% Urine Appearance Clear Clear Urine Color Yellow Yellow General appearance: average body habitus and cooperative Head Head exam: Present atraumatic and normal inspection Eye Eye exam: Present normal appearance ENT ENT exam: Present mucous membranes moist, normal exam and normal external ear exam Additional comments: Nasal cannula in place Neck Neck exam: Present normal inspection Respiratory Respiratory exam: Present chest wall tenderness, decreased breath sounds and wheezes Cardiovascular Cardiovascular exam: Present normal rate and rhythm GI/Abdominal GI/Abdominal exam: Present normal bowel sounds Back Exam Back exam: Present normal inspection Neurological Exam Neurological exam: Present alert and oriented X3 Skin Skin exam: Present intact and warm OBJ DATA Labs CBC & Chem 7: 03/08/22 05:05 03/10/22 05:55 Labs: Abnormal Lab Results 03/10/22 03/08/22 03/08/22 05:55 05:05 05:05 WBC Neut % (Auto) 80.3 H Lymph % (Auto) 11.7 L Lymph # (Auto) 0.87 L Absolute Neutrophils Creatinine 1.3 H Calcium 8.1 L Total Protein 5.2 L Albumin 3.1 L Globulin 2.1 L 03/07/22 12:04 WBC 11.9 H Neut % (Auto) 88.6 H Lymph % (Auto) 5.6 L Lymph # (Auto) 0.67 L Absolute Neutrophils 10.52 H Creatinine Calcium Total Protein Albumin Globulin Meds: Medications Acetaminophen (Acetaminophen 325 Mg Tablet) 650 mg PO Q6HP PRN; Protocol PRN Reason: Per Pain Protocol/Fever > 101 Last Admin: 03/09/22 03:19 Dose: 650 mg Albuterol Sulfate (Albuterol Sulfate 200 Puff Inhaler) 2 puff INH QIDP PRN PRN Reason: shortness of breath or wheezing Albuterol/Ipratropium (Ipratropium/Albuterol 3 Ml Ampul.Neb) 3 ml NEB Q4HRT PRN PRN Reason: Wheezing Last Admin: 03/10/22 11:22 Dose: 3 ml Alendronate Sodium (Alendronate Sodium 70 Mg Tablet) 70 mg PO Fr@0730 [facility] Amlodipine Besylate (Amlodipine 10 Mg Tablet) 10 mg PO QDAY [facility] Last Admin: 03/10/22 08:54 Dose: 10 mg Atorvastatin Calcium (Atorvastatin 40 Mg Tablet) 40 mg PO [facility] Last Admin: 03/09/22 21:07 Dose: 40 mg Docusate Sodium (Docusate Sodium 100 Mg Capsule) 100 mg PO BID [facility] Last Admin: 03/10/22 09:05 Dose: Not Given Enoxaparin Sodium (Enoxaparin 40 Mg/0.4 Ml Syringe) 40 mg SQ DAILY [facility] Last Admin: 03/10/22 08:54 Dose: 40 mg Hydromorphone HCl (Hydromorphone 0.5 Mg/0.5 Ml Syringe) 0.5 mg IV Q2HP PRN; Protocol PRN Reason: Per Pain Protocol Last Admin: 03/10/22 11:16 Dose: 0.5 mg Hydroxyzine HCl (Hydroxyzine 25 Mg Tablet) 25 mg PO TIDP PRN PRN Reason: anxiety Last Admin: 03/10/22 03:37 Dose: 25 mg Sodium Chloride (Sodium Chloride 0.9%) 1,000 mls @ 100 mls/hr IV .Q10H [facility] Last Admin: 03/10/22 01:42 Dose: 100 mls/hr Lisinopril (Lisinopril 20 Mg Tablet) 40 mg PO DAILY [facility] Last Admin: 03/10/22 08:54 Dose: 40 mg Lorazepam (Lorazepam 0.5 Mg Tablet) 0.5 mg PO Q4HP PRN PRN Reason: ANXIETY/SEDATION Last Admin: 03/10/22 08:54 Dose: 0.5 mg Meloxicam (Meloxicam 7.5 Mg Tablet) 7.5 mg PO BIDWMEAL [facility]; Protocol Nicotine (Nicotine 21 Mg Patch) 21 mg TOPICAL DAILY@1000 [facility] Last Admin: 03/10/22 08:54 Dose: 21 mg Ondansetron HCl (Ondansetron 4 Mg/2 Ml Vial) 4 mg IV Q6HP PRN PRN Reason: Nausea And Vomiting Last Admin: 03/09/22 11:37 Dose: 4 mg Oxycodone HCl (Oxycodone Hcl 5 Mg Tablet) 10 mg PO Q4HP PRN; Protocol PRN Reason: Per Pain Protocol Last Admin: 03/10/22 08:54 Dose: 10 mg Senna (Sennosides 1 Tablet) 2 tab PO HS [facility] Last Admin: 03/09/22 21:08 Dose: Not Given Sertraline HCl (Sertraline 50 Mg Tablet) 50 mg PO QDAY [facility] Last Admin: 03/10/22 08:55 Dose: 50 mg Sodium Chloride (0.9 % Sodium Chloride 10 Ml Syringe) 10 ml IV Q8 [facility] Last Admin: 03/10/22 08:08 Dose: Not Given Trazodone HCl (Trazodone Hcl 50 Mg Tablet) 25 mg PO HSP PRN PRN Reason: Insomnia Last Admin: 03/09/22 21:07 Dose: 25 mg A/P Assessment and plan (1) Left rib fracture: Status: Acute (2) Atelectasis of left lung: Status: Acute (3) Smoker: Status: Acute (4) Emphysema lung: Status: Acute (5) Stage 1 acute kidney injury: Status: Acute Narrative A/P Narrative: Assessment and Plans: 1. Acute left 3rd, 4th, and 5th rib fracture with associated left left lower lobe/lingula atelectasis: Inpatient med surg Tylenol PRN mild pain Oxycodone PRN moderate pain Dilaudid IV PRN severe pain Toradol PRN MSK pain Ativan PO PRN anxiety Incentive spirometry Supplemental oxygen therapy Physical therapy evaluation and treatment 2. COPD/emphysema: DuoNEB NEB PRN wheezing Incentive spirometry 3. Cigarette smoker: Nicotine replacement therapy 4. Stage 1 acute kidney injury: Kidney functions back to baseline Avoid nephrotoxic agents Saline lock CMP in the morning to trend kidney functions GI ppx: not currently indicated DVT ppx: Lovenox Code status: Full Prognosis: Stable Disposition: inpatient med surg; PT, tentatively looking at Friday03/11/22 discharge Time Spent With Patient Time: Total time spent is greater than 50% in coordination of care (as documented) at patient's floor/unit and/or counseling patient: Total time spent with greater than 50% in coordination of care (as documented) at patient's floor/unit and/or counseling patient:: 25 - 35 minutes QUALITY Stroke Symptom Onset Unknown: No VTE Deep Vein Thrombosis/Pulmonary Embolism Present on Admission: No
[2022-03-10] MEDS: MELOXICAM 7.5 MG TABLET PO SCH ×2 (12:43→16:55)
[2022-03-10] MEDS: ATORVASTATIN 40 MG TABLET PO SCH (20:41)
[2022-03-10] MEDS: SENNOSIDES 1 TABLET PO SCH (20:42)
[2022-03-11] MEDS: HYDROmorphone 0.5 MG/0.5 ML SYRINGE IV PRN (00:16)
[2022-03-11] MEDS: oxyCODONE HCL 5 MG TABLET PO PRN ×2 (04:28→09:03)
[2022-03-11] MEDS: 0.9 % SODIUM CHLORIDE 10 ML SYRINGE IV SCH (05:29)
[2022-03-11] MEDS: MELOXICAM 7.5 MG TABLET PO SCH (08:59)
[2022-03-11] MEDS: amLODIPine 10 MG TABLET PO SCH (09:02)
[2022-03-11] MEDS: LISINOPRIL 20 MG TABLET PO SCH (09:02)
[2022-03-11] MEDS: SERTRALINE 50 MG TABLET PO SCH (09:02)
[2022-03-11] MEDS: ENOXAPARIN 40 MG/0.4 ML SYRINGE SQ SCH (09:05)
[2022-03-11] MEDS: ACETAMINOPHEN 325 MG TABLET PO PRN (09:07)
[2022-03-11] MEDS: DOCUSATE SODIUM 100 MG CAPSULE PO SCH (09:08)
[2022-03-11] MEDS: IPRATROPIUM/ALBUTEROL 3 ML AMPUL.NEB NEB PRN (09:26)
[2022-03-11] MEDS: NICOTINE 21 MG PATCH TOPICAL SCH (09:58)
[2022-03-11] MEDS: LORazepam 0.5 MG TABLET PO PRN (10:06)
--- NOTE | 2022-03-11 10:26 | Discharge Summary ---
Discharge Provider Provider IMPORTANT FOLLOW-UP INFORMATION FOR PCP: Patient information: Note initiated : 03/11/22 at 10:23 am Service Date, if different from initiated Date: [] Patient: Adeline Mathews 61 y/o F admitted on 03/07/22 for Fall-Left Rib Fractures. Chief Complaint: [] Date of admission: 03/07/22 19:45 Discharge date: 03/11/22 Primary care physician: Cierra Goode Attending physician on admission: Anuj Covington Consults: 03/07/22 Consult to Physician [CONS] Stat Comment: Consulting Provider: Anuj Covington Reason For Exam: Physician to Consult Consult to Physician [CONS] Stat Comment: Consulting Provider: Joaquin Goode Reason For Exam: Physician to Consult Attending physician on discharge: Anuj Covington COURSE Hospital Course Hospital course: Ms. Mathews is a 61 year old F history of cigarette smoking, COPD, essential hypertensions, presenting with accidental fall with resultant left sided chest wall pain with associated shortness of breath. She had a mechanical fall last Friday when he tripped on the cord of the heater. She landed on her abdomen and her chest without any head injury. She did not lost her consciousness. Her pain gradually increased now graded at 10 out of 10 in severity, constant, sharp, radiating from her left upper abdominal quadrant to left lateral chest to left upper back. She has difficulty taking a deep breath and does associated shortness of breath. CT imaging showing acute fractures anteriorly in the left third fourth and fifth ribs with associated atelectasis in the anterior basal segment of the left lower lobe and inferior segment of the lingula. Labs also showing mild leukocytosis with WBC 11.9, as well as serum creatinine mildly raised to 1.3 with baseline 1.0. Admission request was called for pain management associated with rib fractures. 03/08: Patient is currently complaining of 2 out of 10, mild, sharp left sided chest wall pain. She is coming of improving degree of shortness of breath and can take a deep breath compared to yesterday. Laboratory rise, WBC down trended from 11.9-7.5. Serum creatinine level status same at 1.3. Continue to provide narcotics as needed for pain control. Continue to encourage patients to use incentive spirometry while awake. Continue IV fluid replacement while trending kidney functions on a daily basis. Continue physical therapy evaluation and treatment. 03/09: Still c/o severe, 8/10 left sided chest wall pain. c/o mild shortness of breath due to chest wall pain. Poor appetite. Unable to participate with physical therapy due to pain. Continue to provide narcotics as needed for pain control. Continue to encourage patients to use incentive spirometry while awake. Continue IV fluid replac ement while trending kidney functions on a daily basis. Continue physical therapy evaluation and treatment. 03/10: Patient is on 3L/min oxygen at the moment. Serum Cr level 1.3-->1.3-->1.1. Still c/o severe, 8/10 left sided chest wall pain. c/o mild shortness of breath due to chest wall pain. Continue to provide narcotics as needed for pain control. Continue to encourage patients to use incentive spirometry while awake. Saline lock. Continue physical therapy evaluation and treatment. Tentative discharge date: Friday03/11/22. 03/11: Discharged home. Rx sent to pharmacy and given. 2 week PCP follow up appointment made for her. All questions were answered prior to patient being physically discharged. Discharge diagnosis: rib fractures Time Spent with Patient Time attestation: Total time spent providing and/or coordinating discharge services: Time spent: Less than 30 minutes EXAM Constitutional Vitals: Temp Pulse Resp BP Pulse Ox O2 Del Method O2 Flow Rate 36.4 C 82 16 169/71 94 3 03/11/22 08:00 03/11/22 09:26 03/11/22 09:26 03/11/22 08:00 03/11/22 09:26 03/11/22 09:26 03/10/22 23:53 General appearance: cooperative and no acute distress Head Head exam: Present atraumatic and normocephalic Eye Eye exam: Present EOMI and PERRL ENT ENT exam: Present mucous membranes moist, normal exam and normal external ear exam Neck Neck exam: Present normal inspection; Absent lymphadenopathy, tenderness or thyromegaly Respiratory Respiratory exam: Present chest wall tenderness and wheezes; Absent accessory muscle use or respiratory distress Cardiovascular Cardiovascular exam: Present normal rate and rhythm; Absent JVD GI/Abdominal GI/Abdominal exam: Present normal bowel sounds and soft; Absent organomegaly or tenderness Extremities Exam Extremities exam: Present full ROM, normal capillary refill and normal inspection; Absent tenderness Neurological Exam Neurological exam: Present alert, CN II-XII intact and oriented X3; Absent motor sensory deficit Psychiatric Psychiatric exam: Present normal affect and normal mood; Absent anxious or depressed Skin Skin exam: Present dry and intact Discharge Plan Patient/Caregiver Discharge Instructions Activity: increase activity as tolerated Diet: Regular Diet Prescriptions: New nicotine 21 mg/24 hr Patch 24 Hour 21 mg topical DAILY@1000 Qty: 21 1RF oxycodone 5 mg Tablet 10 mg PO Q4HP PRN (Reason: Per Pain Protocol) Qty: 20 0RF Continued albuterol sulfate [ProAir HFA] 90 mcg/actuation HFA aerosol inhaler 2 inh inhalation QID PRN (Reason: shortness of breath or wheezing) Qty: 8.5 4RF amlodipine 10 mg tablet 10 mg PO QDAY Qty: 90 1RF lisinopril 40 mg tablet See Rx Instructions .ROUTE .COMPLEX Qty: 30 12RF Dose Instruction: TAKE 1 TABLET BY MOUTH ONCE DAILY FOR HIGH BLOOD PRESSURE Rx Instructions: TAKE 1 TABLET BY MOUTH ONCE DAILY FOR HIGH BLOOD PRESSURE sertraline 50 mg tablet 50 mg PO QDAY Qty: 60 0RF meloxicam 7.5 mg tablet 7.5 mg PO BIDWMEAL Qty: 60 6RF atorvastatin 40 mg tablet See Rx Instructions .ROUTE .COMPLEX Qty: 30 2RF Dose Instruction: TAKE 1 TABLET BY MOUTH AT BEDTIME FOR CHOLESTEROL Rx Instructions: TAKE 1 TABLET BY MOUTH AT BEDTIME FOR CHOLESTEROL hydroxyzine HCl 25 mg tablet 25 mg PO TID PRN (Reason: anxiety) Qty: 30 2RF alendronate 70 mg tablet 70 mg PO QWEEK Qty: 28 11RF Rx Instructions: take with full glass of water, stay upright for a hour after. Trelegy Ellipta 200-62.5-25 mcg blister with device 1 inh inhalation Q24H Qty: 60 3RF diphenhydramine-acetaminophen 25-500 mg tablet See Rx Instructions PO QHS PRN (Reason: Rash) Qty: 30 0RF Rx Instructions: 1/2 tab PO every day at bedtime PRN; Follow Up Plan Follow up with: Cierra Goode ARNP [Primary Care Provider] - Patient Disposition: Home, Self-Care Rehab Potential: Good I certify that the patient requires SNF services: No Overall status at discharge: patient is progressing back to baseline Discharge Orders: Discharge Order (Routine); Ordered 03/11/22 Ordered By: Anuj PETTY VTE Deep Vein Thrombosis/Pulmonary Embolism Present on Admission: No
[2022-03-15] MEDS ORDERED: ALENDRONATE SODIUM 70 MG TABLET PO SCH (07:30)
== END 2022-03-11 11:15 | disposition home or self-care (01) | DRG 184 ==
LOC: ED 10:20 → MEDSUR 19:45
PROVIDERS: ADMIT Internal Medicine; ATTEND Internal Medicine